=== PATIENT | female | born 1950 | race Caucasian/White ===

== ENCOUNTER → 2018-04-25 07:44 | Outpatient (CLI) | payer OTHER, SELFPAY ==
[2018-04-25 09:31] LABS: Cholesterol 260 mg/dL (140-199); HDL Cholesterol 83 mg/dL (40-60); LDL Cholesterol Calculated 165 mg/dL (<100); Triglycerides 62 mg/dL (35-150)
[2018-04-25 09:36] LABS: TSH w/ Reflex to FT4 2.62 uIU/mL (0.47-4.68)
== END ==
PROVIDERS: Family Provider Internal Medicine; PCP Internal Medicine; Visit Provider Internal Medicine
DX: E03.9 Hypothyroidism, unspecified (principal); R03.0 Elevated blood-pressure reading, without diagnosis of hypertension
CPT/HCPCS: 36415; 80061; 84443

== ENCOUNTER 2018-09-30 10:32 | Day surgery (SDC) | payer OTHER, SELFPAY ==
[2018-09-30] MEDS: PROPARACAINE 0.5% OPHTH SOL 2 DROPS EYE-OP (11:10)
[2018-09-30 11:20] VITALS: BP 183/89; PULSE 71; RESP 16; TEMP 36.3; O2SAT 99; BMI 19.0
[2018-09-30] MEDS: CATARACT EYE COMPOUND (10 DROPS/SYRINGE) 3 DROPS EYE-OP (11:29)
--- NOTE | 2018-09-30 12:29 | P.OP.PRE_ITS ---
Pre-operative Note Interval Note Changes: No
--- NOTE | 2018-09-30 12:29 | PM.PREOP ---
Pre-operative Note Interval Note Changes: No
--- NOTE | 2018-09-30 12:29 | PM.OP.1 ---
Operative Date/Time/Diagnoses Pre-op diagnosis: Nuclear Cataract Left eye Post-op diagnosis: same Procedure & Clinicians Surgeon: Nirmal Ochoa Anesthesia Type: MAC +/- and Sedation Operative Notes Procedure in detail: Patient brought to the operating suite. Tetracaine drops placed in the left eye. Marking instrument was used to leighton the vertical and horizontal meridians. Patient was prepped and draped in sterile manner. Wire lid speculum was placed in the eye. Betadine drops were placed on the eye. This was irrigated. Lidocaine jelly was placed on the eye. A paracentesis port was created with a side-port blade. 0.1 mL 1% preservative free lidocaine was injected into the anterior chamber. The anterior chamber was deepened with viscoelastic. 2.6 mm keratome was used to create a temporal clear corneal incision. Cystotome and Utrata forceps were used to create continuous tear capsulorrhexis. Balanced salt solution was used to hydro dissect the nucleus. The phacoemulsification handpiece was inserted and the nucleus was removed using the stop and chop technique. The irrigation aspiration handpiece was inserted and the remaining cortex was removed. Anterior chamber was deepened with viscoelastic. An Barlow GIA162 intraocular lens with a power of 27.0 was injected into the capsular bag. Irrigation aspiration handpiece was inserted and the remaining viscoelastic was removed. The lens was rotated to the 90 degree meridian. The incision was hydrated with balanced salt solution and found to be leak free with pressure with Weck-Sena sponges. 0.1 mL Vigamox injected anterior chamber. 0.3 mL Kenalog 10 mg was injected subconjunctivally. Lid speculum was removed. The patient left the operating room in excellent condition. Complications: none Condition: stable Disposition: same day surgery
[2018-09-30] MEDS: PHENYLEPHRINE/LIDOCAINE VIAL (OR) 0.2 ML EYE-OP (12:46)
[2018-09-30] MEDS: TRIAMCINOLONE 50 MG/5 ML VIAL INJ ×2 (12:47)
[2018-09-30] MEDS: MOXIFLOXACIN OPHTH DROPS 3 ML BOTTLE 2 DROPS INJ (12:47)
[2018-09-30] MEDS: CHONDROIDTIN/SOD HYALURONATE 1.05 ML SYRINGE INTRAOCULA (12:47)
[2018-09-30] MEDS: BALANCED SALT IRRIG SOLN NO.2 500 ML, EPINEPHrine 1 MG IRR (12:48)
[2018-09-30] MEDS: LIDOCAINE JELLY 2% 5 ML 1 APPLIC TOP (12:48)
[2018-09-30] MEDS: TETRACAINE 0.5% OPHTH DROPS 15 ML 2 DROPS EYE-LEFT (12:48)
[2018-09-30 13:03] VITALS: BP 164/72; BP 164/85; PULSE 66; RESP 16; RESP 18; TEMP 36.7; TEMP 36.9; O2SAT 97; O2SAT 99
== END 2018-09-30 13:25 ==
LOC: OR 10:39
PROVIDERS: PCP Internal Medicine; Visit Provider Ophthalmology
DX: H25.12 Age-related nuclear cataract, left eye (principal)
CPT/HCPCS: J0171; J2250; J3010; J3301; V2787

== ENCOUNTER 2018-10-07 08:34 | Day surgery (SDC) | payer OTHER, SELFPAY ==
[2018-10-07] MEDS: PROPARACAINE 0.5% OPHTH SOL 2 DROPS EYE-OP (09:34)
[2018-10-07 09:36] VITALS: BMI 18.7
[2018-10-07] MEDS: CATARACT EYE COMPOUND (10 DROPS/SYRINGE) 3 DROPS EYE-OP (09:41)
[2018-10-07 09:51] VITALS: BP 201/92; PULSE 65; RESP 15; TEMP 36.2; O2SAT 99
[2018-10-07 09:52] VITALS: BP 187/91
--- NOTE | 2018-10-07 10:33 | P.OP.PRE_ITS ---
Pre-operative Note Interval Note Changes: No
--- NOTE | 2018-10-07 10:33 | PM.PREOP ---
Pre-operative Note Interval Note Changes: No
--- NOTE | 2018-10-07 10:33 | PM.OP.1 ---
Operative Date/Time/Diagnoses Pre-op diagnosis: Nuclear cataract right eye Procedure & Clinicians Procedure: Cataract Surgery Same procedure as scheduled: Yes Surgeon: Nirmal Ochoa Anesthesia Type: MAC +/- and Sedation Operative Notes Procedure in detail: Patient brought to the operating suite. Tetracaine drops placed in the right eye. The marking instrument was used to leighton the vertical and horizontal meridians. Patient was prepped and draped in sterile manner. Wire lid speculum was placed in the eye. Betadine drops were placed on the eye. This was irrigated. Lidocaine jelly was placed on the eye. A paracentesis port was created with a side-port blade. 0.1 mL 1% preservative free lidocaine was injected into the anterior chamber. The anterior chamber was deepened with viscoelastic. 2.6 mm keratome was used to create a temporal clear corneal incision. Cystotome and Utrata forceps were used to create continuous tear capsulorrhexis. Balanced salt solution was used to hydro dissect the nucleus. The phacoemulsification handpiece was inserted and the nucleus was removed using the stop and chop technique. The irrigation aspiration handpiece was inserted and the remaining cortex was removed. Anterior chamber was deepened with viscoelastic. An Barlow OIA140 intraocular lens with a power of 28.5 was injected into the capsular bag. Irrigation aspiration handpiece was inserted and the remaining viscoelastic was removed. The lens was rotated to the 90 degree meridian. Incision was hydrated with balanced salt solution and found to be leak free with pressure with Weck-Sena sponges. 0.1 mL Vigamox injected anterior chamber. 0.3 mL Kenalog 10 mg was injected subconjunctivally. Lid speculum was removed. The patient left the operating room in excellent condition. Complications: none Condition: stable Disposition: same day surgery
[2018-10-07] MEDS: CHONDROIDTIN/SOD HYALURONATE 1.05 ML SYRINGE INTRAOCULA (10:45)
[2018-10-07] MEDS: LIDOCAINE JELLY 2% 5 ML 1 APPLIC TOP (10:45)
[2018-10-07] MEDS: MOXIFLOXACIN OPHTH DROPS 3 ML BOTTLE 2 DROPS INJ (10:45)
[2018-10-07] MEDS: PHENYLEPHRINE/LIDOCAINE VIAL (OR) 0.2 ML EYE-OP (10:45)
[2018-10-07] MEDS: TETRACAINE 0.5% OPHTH DROPS 15 ML 2 DROPS EYE-RIGHT (10:46)
[2018-10-07] MEDS: TRIAMCINOLONE 50 MG/5 ML VIAL INJ (10:46)
[2018-10-07] MEDS: BALANCED SALT IRRIG SOLN NO.2 500 ML, EPINEPHrine 1 MG IRR (10:47)
[2018-10-07 11:01] VITALS: BP 147/90; PULSE 60; RESP 16; TEMP 36.4; O2SAT 99
== END 2018-10-07 11:11 ==
PROVIDERS: PCP Internal Medicine; Visit Provider Ophthalmology
DX: H25.11 Age-related nuclear cataract, right eye (principal)
CPT/HCPCS: J0171; J2250; J3010; J3301; V2787

== ENCOUNTER → 2018-11-13 09:03 | Outpatient (CLI) | payer OTHER, SELFPAY ==
[2018-11-13 10:33] LABS: Free T4, Direct Thyroxine 1.32 ng/dL (0.78-2.19)
== END ==
PROVIDERS: PCP Internal Medicine; Visit Provider Internal Medicine
DX: E03.9 Hypothyroidism, unspecified (principal)
CPT/HCPCS: 36415; 84439; 84443

== ENCOUNTER → 2018-11-28 14:37 | Outpatient (CLI) | payer OTHER, SELFPAY ==
[2018-11-28 16:16] LABS: BUN Creatinine Ratio 24.3 (6-22); Blood Urea Nitrogen 17 mg/dL (7-17); Calcium 9.2 mg/dL (8.4-10.2); Carbon Dioxide 29 mmol/L (22-32); Chloride 102 mmol/L (98-107); Estimated Glomerular Filt Rate > 60.0 mL/min (>60); Glucose 90 mg/dL (80-110); HEMOLYSIS < 15 (0-50); Potassium 3.7 mmol/L (3.4-5.1); Sodium 141 mmol/L (137-145)
[2018-12-01 18:53] LABS: Aldosterone/Renin Activity Rat 6.1 Ratio (0.9-28.9); Plama Renin, LC/MS/MS 0.66 ng/mL/h (0.25-5.82)
== END ==
PROVIDERS: PCP Internal Medicine; Visit Provider Internal Medicine
DX: E03.9 Hypothyroidism, unspecified (principal); I10 Essential (primary) hypertension
CPT/HCPCS: 36415; 80048; 82088; 84244

== ENCOUNTER → 2018-12-04 13:29 | Outpatient (CLI) | payer OTHER, SELFPAY ==
--- NOTE | 2018-12-04 | DI.ECHO.S_ITS ---
[facility] +---------+ : : [address] : : : : [id number] : : : : Phone: [phone]---------+ Echocardiogram Report + + :Name: GUILLERMO SIBLEY Study Date: 12/04/2018 Height: 66 in : :[facility] Weight: 115 lb : : Gender: Female BSA: 1.6 m2 : :: 1950 Age: 68 yrs BP: 178/92 mmHg: :Reason For Study: Hypertension : : Performed By: Breanna Anthony : :Referring: BRYAN RICCI : + + Interpretation Summary The left ventricle is normal in size, wall thickness, and systolic function without any focal wall motion abnormalities. The ejection fraction is estimated to be 60-65%. Diastolic parameters suggest probable normal left ventricular diastolic function and normal filling pressures. The right ventricle grossly appears normal in size with probable normal systolic function. The right ventricular systolic pressure is estimated to be at least 26 mmHg based on an estimated right atrial pressure of 3 mm Hg. There is no prior echocardiogram noted for this patient. Procedure: A two-dimensional transthoracic echocardiogram with color flow and Doppler was performed. The study quality was technically good. There is no prior echocardiogram noted for this patient. The patient was in normal sinus rhythm during the exam. Left Ventricle: The left ventricle is normal in size, wall thickness, and systolic function without any focal wall motion abnormalities. The ejection fraction is estimated to be 60-65%. Left ventricular wall motion is normal. Diastolic parameters suggest probable normal left ventricular diastolic function and normal filling pressures. Right Ventricle: The right ventricle grossly appears normal in size with probable normal systolic function. Atria: The left atrial size is normal. Right atrial size is normal. There is no Doppler evidence for an interatrial shunt. Mitral Valve: The mitral valve is grossly normal. There is no mitral valve stenosis. There is trace mitral regurgitation. Aortic Valve: The aortic valve is trileaflet. The aortic valve opens well. There is no aortic valve stenosis. No aortic regurgitation is present. Tricuspid Valve: The tricuspid valve is normal in structure and function. There is trace tricuspid regurgitation. The right ventricular systolic pressure is estimated to be at least 26 mmHg based on an estimated right atrial pressure of 3 mm Hg. Pulmonic Valve: The pulmonic valve is normal in structure and function. There is trace pulmonic regurgitation. Great Vessels: The aortic root is normal size. The ascending aorta is normal in size. The IVC is of normal diameter and collapses greater than 50% with a sniff. This suggests a low right atrial pressure of 3 mm Hg. Pericardium/ Pleura There is no pericardial effusion. There is no pleural effusion. MMode/2D Measurements & Calculations LVIDd: 4.8 cm Ao root diam: 3.1 cm LVIDs: 3.3 cm Aortic Jxn: 2.5 cm FS: 29.8 % asc Aorta Diam: 3.5 cm IVSd: 0.90 cm Ao Arch Diam (Prox Trans): 2.8 cm LVPWd: 0.82 cm LV boswell. diameter/BSA (cm/m^2): 3.0 LV sys. diameter/BSA (cm/m^2): 2.1 LA dimension: 3.8 cm RA long axis: 4.9 cm LA A2 area: 19.9 cm2 RA area: 17.9 cm2 LA A4 area: 17.1 cm2 RA vol: 56.2 ml LA length (vol): 4.8 cm RA : 35.6 ml/m2 LA vol: 59.9 ml IVC diam: 1.5 cm LA vol index: 37.9 ml/m2 Doppler Measurements & Calculations Ao V2 max: 136.3 cm/sec MV E max dioni: 54.1 cm/sec Ao V2 mean: 97.9 cm/sec MV A max dioni: 106.9 cm/sec Ao max P.4 mmHg MV E/A: 0.51 Ao mean P.3 mmHg Med Peak E' Dioni: 3.8 cm/sec Ao V2 VTI: 29.9 cm E/E' med: 14.3 Lat Peak E' Dioni: 4.9 cm/sec E/E' lat: 10.9 E/e' average: 12.6 MV dec time: 0.31 sec TR max dioni: 237.0 cm/sec TR max P.5 mmHg PA V2 max: 88.3 cm/sec PA V2 mean: 60.9 cm/sec PA mean P.7 mmHg PA Accel Time: 0.25 sec Electronically signed by: Moses Echols M.D. on Reading Physician:12/04/2018 10:58 PM
[2018-12-09 15:26] LABS: Total Volume 2550 mL; Urine, Metanephrine 105 mcg/24 h (90-315); Urine, Normetanephrine 343 mcg/24 h (122-676)
[2018-12-10 15:19] LABS: Total Volume: 2550 mL; Vanillymandelic Acid 24 Hr Ur 5.1 mg/24 h (< OR = 6.0)
== END ==
PROVIDERS: PCP Internal Medicine; Visit Provider Internal Medicine
DX: I10 Essential (primary) hypertension (principal); E03.9 Hypothyroidism, unspecified
CPT/HCPCS: 83835; 84585; 93306

== ENCOUNTER → 2019-12-17 19:09 | Outpatient (ROUT) | payer MEDICARE, SELFPAY ==
[2019-12-17 19:33] LABS: BUN Creatinine Ratio 25.7 (6-22); Blood Urea Nitrogen 18 mg/dL (7-17); Calcium 9.6 mg/dL (8.4-10.2); Carbon Dioxide 31 mmol/L (22-32); Chloride 104 mmol/L (98-107); Cholesterol 234 mg/dL (140-199); Estimated Glomerular Filt Rate > 60.0 mL/min (>60); Glucose 86 mg/dL (80-110); HDL Cholesterol 61 mg/dL (40-60); HEMOLYSIS < 15 (0-50); LDL Cholesterol Calculated 153 mg/dL (<100); Sodium 141 mmol/L (137-145); Triglycerides 98 mg/dL (35-150)
[2019-12-17 20:04] LABS: TSH w/ Reflex to FT4 2.75 uIU/mL (0.47-4.68)
== END ==
PROVIDERS: PCP Internal Medicine; Visit Provider Internal Medicine
DX: I10 Essential (primary) hypertension (principal); E03.9 Hypothyroidism, unspecified; E78.2 Mixed hyperlipidemia
CPT/HCPCS: 80048; 80061; 84443

== ENCOUNTER → 2020-07-07 13:29 | Outpatient (CLI) | payer MEDICARE, SELFPAY ==
--- NOTE | 2020-07-07 14:09 | DI.MG.S_ITS ---
Patient Name: GUILLERMO SIBLEY date: 1950 Sex: F Attending Physician: Nikita Indications: Date: 07/07/2020 13:56 At the request of: BRYAN RICCI Procedure: MM screening mammo BI BILATERAL DIGITAL SCREENING MAMMOGRAM 3D/2D WITH CAD: 07/07/2020 CLINICAL: Routine screening. Comparison is made to exams dated: 11/15/2017 mammogram, 10/01/2014 mammogram, and 11/15/2012 mammogram - [facility]. The tissue of both breasts is extremely dense, which lowers the sensitivity of mammography. Current study was also evaluated with a Computer Aided Detection (CAD) system. No significant masses, calcifications, or other findings are seen in either breast. There has been no significant interval change. IMPRESSION: NEGATIVE There is no mammographic evidence of malignancy. A 1 year screening mammogram is recommended. This exam was interpreted at Station ID: [id number]. NOTE: For mammograms, a report in lay terms will be sent to the patient. Approximately 15% of breast malignancies will not be visualized mammographically. In the management of a palpable breast mass, a negative mammogram must not discourage biopsy of a clinically suspicious lesion. Electronically Signed By: Heath salmon/martin:07/07/2020 14:57:33 letter sent: Normal Exam ACR BI-RADS Category 1: Negative [id number]
== END ==
PROVIDERS: PCP Internal Medicine; Referring Provider Internal Medicine; Visit Provider Internal Medicine
DX: Z12.31 Encounter for screening mammogram for malignant neoplasm of breast (principal)
CPT/HCPCS: 77063; 77067

== ENCOUNTER → 2021-06-26 08:39 | Outpatient (CLI) | payer OTHER, SELFPAY | PROVIDERS: PCP Internal Medicine; Referring Provider Internal Medicine; Visit Provider Internal Medicine | DX: M81.0 Age-related osteoporosis without current pathological fracture (principal); Z13.820 Encounter for screening for osteoporosis; Z78.0 Asymptomatic menopausal state; E07.9 Disorder of thyroid, unspecified | CPT/HCPCS: 77080 ==

== ENCOUNTER → 2022-04-26 10:59 | Outpatient (CLI) | payer OTHER, SELFPAY ==
[2022-04-26 11:51] LABS: Hematocrit 38.1 % (36-46); Hemoglobin 12.8 g/dL (12.0-16.0); Mean Corpuscular HGB Conc 33.6 % (30-36); Mean Corpuscular Hemoglobin 32.8 PG (26-34); Mean Corpuscular Volume 97.5 fL (80-100); Platelet Count 255 X10^3/uL (150-400); Red Blood Cell Count 3.91 X10^6/uL (4.0-5.2); Red Cell Distribution Width 13.2 % (11.6-14.8); White Blood Cell Count 5.3 X10^3/uL (4.5-11.0)
[2022-04-26 12:06] LABS: Alanine Aminotransferase 14 IU/L (<35); Albumin 4.4 g/dL (3.5-5.0); Albumin Globulin Ratio 1.3 (1.0-2.8); Alkaline Phosphatase 42 U/L (38-126); Aspartate Aminotransferase 32 IU/L (14-36); BUN Creatinine Ratio 16.5 (6-22); Bilirubin Total 0.2 mg/dL (0.2-1.3); Blood Urea Nitrogen 15 mg/dL (7-17); Calcium 9.2 mg/dL (8.4-10.2); Carbon Dioxide 32 mmol/L (22-32); Chloride 103 mmol/L (98-107); Cholesterol 243 mg/dL (140-199); Estimated Glomerular Filt Rate > 60 mL/min (>60); Globulin 3.4 g/dL (1.7-4.1); Glucose 70 mg/dL (80-110); HDL Cholesterol 76 mg/dL (40-60); HEMOLYSIS < 15 (0-50); LDL Cholesterol Calculated 148 mg/dL (<100); Potassium 3.6 mmol/L (3.4-5.1); Sodium 141 mmol/L (137-145); Total Protein 7.8 g/dL (6.3-8.2); Triglycerides 95 mg/dL (35-150)
[2022-04-26 13:05] LABS: TSH w/ Reflex to FT4 1.52 uIU/mL (0.47-4.68)
== END ==
PROVIDERS: PCP Internal Medicine; Referring Provider Internal Medicine; Visit Provider Internal Medicine
DX: I10 Essential (primary) hypertension (principal); E78.2 Mixed hyperlipidemia; E03.9 Hypothyroidism, unspecified
CPT/HCPCS: 36415; 80053; 80061; 84443; 85027

== ENCOUNTER → 2022-06-06 07:57 | Outpatient (CLI) | payer MEDICARE, SELFPAY ==
--- NOTE | 2022-06-06 | DI.MG.S_ITS ---
BILATERAL DIGITAL SCREENING MAMMOGRAM 3D/2D WITH CAD: 06/06/2022 CLINICAL: Routine screening. Comparison is made to exams dated: 07/07/2020 mammogram - [facility], 11/15/2017 mammogram, and 10/01/2014 mammogram - [facility]. The tissue of both breasts is extremely dense, which lowers the sensitivity of mammography. Current study was also evaluated with a Computer Aided Detection (CAD) system. No significant masses, calcifications, or other findings are seen in either breast. There has been no significant interval change. IMPRESSION: NEGATIVE There is no mammographic evidence of malignancy. A 1 year screening mammogram is recommended. Based on the Tyrer Cuzick model (a risk assessment model) the patient's lifetime risk is 13.8% and her 10 year risk is 9.6%. According to the ACR, ACS, and NCCN guidelines, an annual breast MRI exam along with mammogram is recommended if the patient's lifetime risk is 20% or greater. This exam was interpreted at Station ID: [id number]. NOTE: For mammograms, a report in lay terms will be sent to the patient. Approximately 15% of breast malignancies will not be visualized mammographically. In the management of a palpable breast mass, a negative mammogram must not discourage biopsy of a clinically suspicious lesion. Electronically Signed By: Rafael herrmann/martin:06/06/2022 08:33:45 letter sent: Normal Exam ACR BI-RADS Category 1: Negative [id number]
== END ==
PROVIDERS: PCP Internal Medicine; Referring Provider Internal Medicine; Visit Provider Internal Medicine
DX: Z12.31 Encounter for screening mammogram for malignant neoplasm of breast (principal)
CPT/HCPCS: 77063; 77067

== ENCOUNTER → 2023-06-26 07:46 | Outpatient (CLI) | payer MEDICARE, SELFPAY ==
--- NOTE | 2023-06-26 | DI.MG.S_ITS ---
BILATERAL DIGITAL SCREENING MAMMOGRAM 3D/2D WITH CAD: 06/26/2023 CLINICAL: Routine screening. Comparison is made to exams dated: 06/06/2022 mammogram, 07/07/2020 mammogram - [facility], 11/15/2017 mammogram, and 10/01/2014 ultrasound - [facility]. Both breasts are extremely dense, which lowers the sensitivity of mammography (category d />75% glandular tissue). Current study was also evaluated with a Computer Aided Detection (CAD) system. No significant masses, calcifications, or other findings are seen in either breast. There has been no significant interval change. IMPRESSION: NEGATIVE There is no mammographic evidence of malignancy. A 1 year screening mammogram is recommended. Based on the Tyrer Cuzick model (a risk assessment model) the patient's lifetime risk is 13.0% and her 10 year risk is 9.8%. According to the ACR, ACS, and NCCN guidelines, an annual breast MRI exam along with mammogram is recommended if the patient's lifetime risk is 20% or greater. This exam was interpreted at Station ID: [id number]. NOTE: For mammograms, a report in lay terms will be sent to the patient. Approximately 15% of breast malignancies will not be visualized mammographically. In the management of a palpable breast mass, a negative mammogram must not discourage biopsy of a clinically suspicious lesion. Electronically Signed By: Nabor bell/martin:06/26/2023 12:49:40 letter sent: Normal Exam ACR BI-RADS Category 1: Negative [id number]
== END ==
PROVIDERS: PCP Internal Medicine; Referring Provider Internal Medicine; Visit Provider Internal Medicine
DX: Z12.31 Encounter for screening mammogram for malignant neoplasm of breast (principal)
CPT/HCPCS: 77063; 77067

== ENCOUNTER → 2023-06-26 09:16 | Outpatient (CLI) | payer MEDICARE, SELFPAY ==
[2023-06-26 11:17] LABS: Aspartate Aminotransferase 32 IU/L (14-36); BUN Creatinine Ratio 15.2 (6-22); Blood Urea Nitrogen 12 mg/dL (7-17); Calcium 9.3 mg/dL (8.4-10.2); Carbon Dioxide 28 mmol/L (22-32); Chloride 103 mmol/L (98-107); Cholesterol 236 mg/dL (140-199); Estimated Glomerular Filt Rate > 60 mL/min (>60); Glucose 100 mg/dL (80-110); HDL Cholesterol 62 mg/dL (40-60); HEMOLYSIS < 15 (0-50); LDL Cholesterol Calculated 162 mg/dL (<100); Potassium 3.9 mmol/L (3.4-5.1); Sodium 139 mmol/L (137-145); Triglycerides 61 mg/dL (35-150)
[2023-06-26 11:34] LABS: TSH w/ Reflex to FT4 2.48 uIU/mL (0.47-4.68)
== END ==
PROVIDERS: PCP Internal Medicine; Referring Provider Internal Medicine; Visit Provider Internal Medicine
DX: E03.9 Hypothyroidism, unspecified (principal); E78.2 Mixed hyperlipidemia; I10 Essential (primary) hypertension; M81.0 Age-related osteoporosis without current pathological fracture
CPT/HCPCS: 36415; 80048; 80061; 84443; 84450

== ENCOUNTER → 2023-09-16 09:36 | Outpatient (CLI) | payer MEDICARE, SELFPAY ==
--- NOTE | 2023-09-16 09:37 | DI.RAD.S_ITS ---
Bone Density Report Name: GUILLERMO SIBLEY Age: 72 Sex: Female Ethnicity: White Date of : 1950 Indication: postmenopausal osteoporosis; Referring Provider: BRYAN RICCI Study: Bone densitometry was performed. Exam Date: September 16, 2023 Accession number: [id number] Bone Density: Region BMD T-score Z-score Classification AP Spine(L1, L2, L3) 0.838 -1.6 0.6 Osteopenia Femoral Neck (Left) 0.548 -2.7 -0.8 Osteoporosis Total Hip (Left) 0.687 -2.1 -0.4 Osteopenia Femoral Neck (Right) 0.526 -2.9 -1.0 Osteoporosis Total Hip (Right) 0.702 -2.0 -0.3 Osteopenia Total Hip Mean 0.695 -2.1 -0.4 Osteopenia World Health Organization criteria for BMD impression classify patients as: Normal (T-score at or above -1.0), Osteopenia (T-score between -1.0 and -2.5), or Osteoporosis (T-score at or below -2.5). 10-year Fracture Risk: FRAX not reported because: Some T-score for Spine Total or Hip Total or Femoral Neck at or below -2.5 Previous Exams: -- Region Exam Age BMD T-score BMD Change BMD Change Date g/cm2 vs Baseline vs Previous -- AP Spine (L1-L3) 09/16/2023 72 0.838 -1.6 0.091 (12.2%)# 0.091 (12.2%)# 06/26/2021 70 0.747 -2.5 Total Hip(Left) 09/16/2023 72 0.687 -2.1 -0.026 (-3.6%)# -0.026 (-3.6%)# 06/26/2021 70 0.713 -1.9 Total Hip(Right) 09/16/2023 72 0.702 -2.0 -0.031 (-4.2%)# -0.031 (-4.2%)# 06/26/2021 70 0.733 -1.7 -- *Denotes significance at 95% confidence level, LSC for AP Spine = 0.022 g/cm2, LSC for Total Hip = 0.027 g/cm2 # Denotes dissimilar scan types or analysis methods Impression: The patient has osteoporosis, based on the Right Femoral Neck T-score. No significant bone loss was observed. Discussion: INCREASED RISK OF FRACTURE. BONE DENSITY IS UNDESIRABLY LOW AT ONE OR MORE SKELETAL SITES, CONSISTENT WITH POSTMENOPAUSAL OSTEOPOROSIS. This patient's lowest T-score meets the World Health Organization's (WHO) criteria for osteoporosis at one or more sites (T-score -2.5 or below). In untreated patients, the risk of osteoporotic fracture increases approximately two-fold for each 1.0 SD decrease in T-score. Low bone density is not the only risk factor for fracture; also consider factors such as patient's age, frailty or poor health, risk of falling, risk of injury, previous osteoporotic fracture, family history of osteoporosis, cigarette smoking, low body weight, etc. Not everyone with low bone mineral density has osteoporosis; osteomalacia and other metabolic bone disorders should also be considered. Patients who have osteoporosis should be evaluated for specific diseases and conditions (secondary causes) that may cause or contribute to bone loss. The [place] Association [employer] Clinical Endocrinologists (AACE) and National Osteoporosis Foundation (NOF) recommend pharmacologic intervention for all postmenopausal women whose T-score is in this range. The patient should follow a healthful lifestyle (good nutrition with adequate calcium and vitamin D, and appropriate weight-bearing exercise). Follow-Up: Consider a repeat BMD and Vertebral Fracture Assessment (VFA) exam in 2 years or sooner if medically necessary, to reassess this patient's status. Reported by: DILLON HERNANDEZ M.D. on 09/16/2023 10:05:00 AM.
== END ==
PROVIDERS: PCP Internal Medicine; Referring Provider Internal Medicine; Visit Provider Internal Medicine
DX: M81.0 Age-related osteoporosis without current pathological fracture (principal)
CPT/HCPCS: 77080

== ENCOUNTER → 2023-11-11 08:36 | Outpatient (CLI) | payer MEDICARE, SELFPAY ==
[2023-11-11 09:59] LABS: Alanine Aminotransferase 16 IU/L (<35); Albumin 4.1 g/dL (3.5-5.0); Albumin Globulin Ratio 1.2 (1.0-2.8); Alkaline Phosphatase 43 U/L (38-126); Aspartate Aminotransferase 31 IU/L (14-36); Bilirubin Total 0.5 mg/dL (0.2-1.3); Blood Urea Nitrogen 16 mg/dL (7-17); Calcium 9.9 mg/dL (8.4-10.2); Carbon Dioxide 31 mmol/L (22-32); Chloride 102 mmol/L (98-107); Estimated Glomerular Filt Rate > 60 mL/min (>60); Globulin 3.5 g/dL (1.7-4.1); Glucose 86 mg/dL (80-110); HEMOLYSIS < 15 (0-50); Potassium 4.1 mmol/L (3.4-5.1); Sodium 138 mmol/L (137-145); Total Protein 7.6 g/dL (6.3-8.2)
== END ==
PROVIDERS: PCP Internal Medicine; Referring Provider Internal Medicine; Visit Provider Internal Medicine
DX: M81.0 Age-related osteoporosis without current pathological fracture (principal)
CPT/HCPCS: 36415; 80053

== ENCOUNTER → 2024-09-01 12:20 | Outpatient (CLI) | payer MEDICARE, SELFPAY ==
[2024-09-01 13:36] LABS: Aspartate Aminotransferase 64 IU/L (14-36); BUN Creatinine Ratio 25.6 (6-22); Blood Urea Nitrogen 22 mg/dL (7-17); Calcium 9.6 mg/dL (8.4-10.2); Carbon Dioxide 31 mmol/L (22-32); Chloride 102 mmol/L (98-107); Cholesterol 249 mg/dL (140-199); Estimated Glomerular Filt Rate > 60 mL/min (>60); Glucose 94 mg/dL (80-110); HDL Cholesterol 70 mg/dL (40-60); HEMOLYSIS < 15 (0-50); LDL Cholesterol Calculated 149 mg/dL (<100); Potassium 4.5 mmol/L (3.4-5.1); Sodium 139 mmol/L (137-145); Triglycerides 148 mg/dL (35-150)
[2024-09-01 14:05] LABS: TSH w/ Reflex to FT4 2.35 uIU/mL (0.47-4.68)
== END ==
PROVIDERS: PCP Internal Medicine; Referring Provider Internal Medicine; Visit Provider Internal Medicine
DX: E78.2 Mixed hyperlipidemia (principal); E03.9 Hypothyroidism, unspecified; I10 Essential (primary) hypertension; M81.0 Age-related osteoporosis without current pathological fracture
CPT/HCPCS: 36415; 80048; 80061; 84443; 84450

== ENCOUNTER → 2024-11-09 08:06 | Outpatient (CLI) | payer MEDICARE, SELFPAY ==
--- NOTE | 2024-11-09 08:08 | DI.MG.S_ITS ---
BILATERAL DIGITAL SCREENING MAMMOGRAM 3D/2D WITH CAD: 11/09/2024 CLINICAL: Routine screening. Comparison is made to exams dated: 06/26/2023 mammogram, 06/06/2022 mammogram, and 07/07/2020 mammogram - [facility]. The breasts are heterogeneously dense, which may obscure small masses (category c / 51-75% glandular tissue). Current study was also evaluated with a Computer Aided Detection (CAD) system. No significant masses, calcifications, or other findings are seen in either breast. There has been no significant interval change. IMPRESSION: NEGATIVE There is no mammographic evidence of malignancy. A 1 year screening mammogram is recommended. Based on the Tyrer Cuzick model (a risk assessment model) the patient's lifetime risk is 7.7% and her 10 year risk is 6.9%. According to the ACR, ACS, and NCCN guidelines, an annual breast MRI exam along with mammogram is recommended if the patient's lifetime risk is 20% or greater. This exam was interpreted at Station ID: [id number]. NOTE: For mammograms, a report in lay terms will be sent to the patient. Approximately 15% of breast malignancies will not be visualized mammographically. In the management of a palpable breast mass, a negative mammogram must not discourage biopsy of a clinically suspicious lesion. Electronically Signed By: Ce Weaver M.D., Ph.D. diomedes/martin:11/10/2024 09:30:35 letter sent: Normal Exam ACR BI-RADS Category 1: Negative
== END ==
PROVIDERS: PCP Internal Medicine; Referring Provider Internal Medicine; Visit Provider Internal Medicine
DX: Z12.31 Encounter for screening mammogram for malignant neoplasm of breast (principal); R92.333 Mammographic heterogeneous density, bilateral breasts
CPT/HCPCS: 77063; 77067

== ENCOUNTER → 2024-12-25 07:43 | Outpatient (CLI) | payer MEDICARE, SELFPAY ==
[2024-12-25 08:30] LABS: Alanine Aminotransferase 22 IU/L (<35); Albumin 4.7 g/dL (3.5-5.0); Albumin Globulin Ratio 1.5 (1.0-2.8); Alkaline Phosphatase 36 U/L (38-126); Aspartate Aminotransferase 39 IU/L (14-36); BUN Creatinine Ratio 17.8 (6-22); Bilirubin Total 0.3 mg/dL (0.2-1.3); Blood Urea Nitrogen 16 mg/dL (7-17); Calcium 9.5 mg/dL (8.4-10.2); Carbon Dioxide 30 mmol/L (22-32); Chloride 104 mmol/L (98-107); Cholesterol 184 mg/dL (140-199); Estimated Glomerular Filt Rate > 60 mL/min (>60); Globulin 3.1 g/dL (1.7-4.1); Glucose 81 mg/dL (80-110); HDL Cholesterol 81 mg/dL (40-60); HEMOLYSIS < 15 (0-50); LDL Cholesterol Calculated 90 mg/dL (<100); Potassium 3.8 mmol/L (3.4-5.1); Sodium 141 mmol/L (137-145); Total Protein 7.8 g/dL (6.3-8.2); Triglycerides 64 mg/dL (35-150)
[2024-12-25 09:16] LABS: TSH w/ Reflex to FT4 3.72 uIU/mL (0.47-4.68)
== END ==
PROVIDERS: PCP Internal Medicine; Referring Provider Internal Medicine; Visit Provider Internal Medicine
DX: I10 Essential (primary) hypertension (principal); E78.2 Mixed hyperlipidemia; E03.9 Hypothyroidism, unspecified
CPT/HCPCS: 36415; 80053; 80061; 84443

== ENCOUNTER → 2025-10-04 09:32 | Outpatient (CLI) | payer MEDICARE, SELFPAY ==
--- NOTE | 2025-10-04 09:33 | DI.RAD.S_ITS ---
PROCEDURE: XR DEXA AXIAL SKELETON INDICATIONS: osteoporosis COMPARISON: [facility], , XR DEXA AXIAL SKELETON, 09/16/2023, 9:50. [facility], CR, XR DEXA AXIAL SKELETON, 06/26/2021, 9:28. FINDINGS: Lumbar Spine (L4 excluded due to increased density): Bone mineral density is 0.853 g/cm2, T score -1.5, no statistical change. Left Femoral Neck: Bone mineral density 0.548 g/cm2, T score -2.7. Left Hip: Bone mineral density 0.707 g/cm2, T score -1.9, no statistical change. Fracture Risk Calculation (when applicable): Not reported due to osteoporosis diagnosis. (T score greater or equal to -1.0 to: NORMAL) (T score from -1.1 to -2.4: OSTEOPENIA) (T score less than or equal to -2.5: OSTEOPOROSIS) IMPRESSION: Osteoporosis, without statistical change. Follow-up guidelines as follows: Osteoporosis: Consider a repeat DEXA and Vertebral Fracture Assessment (VFA) exam in 2 years or sooner if medically necessary, to reassess this patient's status. Osteopenia: Consider a repeat DEXA in 2-3 years to reassess this patient's status, or if there is a new clinical indication. Normal: Consider a repeat DEXA in 5 years or sooner, or if there is a new clinical indication. All treatment decisions require clinical judgment and consideration of individual patient factors, including patient preferences, comorbidities, previous drug use, risk factors not captured in the FRAX model (e.g., frailty, falls, vitamin D deficiency, increased bone turnover, interval significant decline in bone density ) and possible under- or over-estimation of fracture risk by FRAX. In addition, the NOF Guide recommends that FDA-approved medical therapies be considered in postmenopausal women and men age >= 50 years with a: * Hip or vertebral (clinical or morphometric) fracture * T-score of <=-2.5 at the spine or hip * Ten-year fracture probability by FRAX of >= 3% for hip fracture or >=20% for major osteoporotic fracture. Dictated by: Josemanuel Friedman M.D. on 10/04/2025 at 11:08 Approved by: Josemanuel Friedman M.D. on 10/04/2025 at 11:09
== END ==
LOC: RAD 09:33
PROVIDERS: PCP Internal Medicine; Referring Provider Internal Medicine; Visit Provider Internal Medicine
DX: M81.0 Age-related osteoporosis without current pathological fracture (principal)
CPT/HCPCS: 77080